=== PATIENT | female | born 1970 | race Caucasian/White ===

== ENCOUNTER → 2017-07-01 15:44 | Outpatient (CLI) | payer BC, SELFPAY ==
--- NOTE | 2017-07-01 15:52 | CT_ITS ---
CT abdomen pelvis wo con CLINICAL INDICATION: Left flank pain ITS.REASON: LEFT FLANK PAIN ORDERING PHYSICIAN: ALPESH Cash PATIENT AGE: 47 years COMPARISON: 08/05/2012 TECHNIQUE: Axial images obtained with sagittal and coronal reformats. PROCEDURE: Oral Contrast: None IV Contrast: None . FINDINGS: Lung base images show coronary artery calcific lesion. There is diffuse fatty liver infiltration with hepatomegaly. There has been a prior cholecystectomy. No obvious ductal dilatation. Spleen, adrenal glands, and pancreas are unremarkable. There is only minimal prominence of the proximal left ureter. No dilatation noted of the distal left ureter. There is however, a faint calcific density just at the left ureterovesical junction measuring 2 mm. While this may represent a phlebolith, a distal ureteral calculus is also a consideration. This was not present on an older exam of 08/05/2012. There are multiple phleboliths present in the pelvis. The right renal collecting system has an unremarkable appearance. Prior appendectomy according to history. No intestinal obstruction or free air is evident. There is mild thickening versus nondistention of the descending and proximal sigmoid colon. There is mild prominence of the left adnexa suggesting underlying ovarian cyst on the left. There are bilateral tubal ligation clips. The left-sided clip may be displaced not associated with the left ovary. Previously the left tubal ligation clip is in the posterior adnexa now within the anterior adnexa. There is minimal amount fluid in the pelvis. Postsurgical changes with prior fusion at L4 and L5 with minimal anterolisthesis of L4 by approximately 5 mm. IMPRESSION: 1. Possible 2 mm left ureterovesical junction stone with no significant dilatation of the left collecting system. 2. Anteverted uterus with prominent left ovary. Further evaluation performed with ultrasound if clinically warranted. 3. There are bilateral tubal ligation clips. The left clip is now anteriorly within the pelvis and does not appear to be associated with the ovary and may be displaced.
== END ==
PROVIDERS: PCP Family Medicine; Visit Provider Physician Assistant
DX: R10.9 Unspecified abdominal pain (principal)
CPT/HCPCS: 74176

== ENCOUNTER → 2017-07-05 13:42 | Outpatient (CLI) | payer BC, SELFPAY ==
--- NOTE | 2017-07-05 13:51 | US_ITS ---
US transvaginal HISTORY: ITS.REASON: LEFT OVARIAN ENLARGEMENT ORDERING PHYSICIAN: ALPSEH Cash PATIENT AGE: 47 years COMPARISON: CT scan of 07/01/2017 FINDINGS: The uterus is enlarged measuring 10 x 4.5 x 5.6 cm. Fluid is present within the endometrium measuring up to 9 mm in thickness. There are multiple nabothian cysts at the cervix. In the fundus of the uterus there is a 2.7 x 2.1 cm area of heterogeneous echogenicity consistent with a fibroid. The right ovary is 2.5 x 1.8 cm. There is a small cyst at 8 mm involving the right ovary. The left ovary is 4.4 x 3.5 x 4.3 cm containing multiple cysts the largest at 2.6 cm. No cul-de-sac fluid. IMPRESSION: 1. Enlarged uterus with 2.7 cm uterine fibroid and fluid within the endometrial cavity. 2. Multiple small left ovarian cysts, the largest measuring 2.6 cm accounting for the abnormality noted on the CT scan in the left adnexa
== END ==
PROVIDERS: Family Provider Family Medicine; PCP Family Medicine; Visit Provider Physician Assistant
DX: N83.8 Other noninflammatory disorders of ovary, fallopian tube and broad ligament (principal)
CPT/HCPCS: 76830

== ENCOUNTER → 2017-10-20 16:13 | Outpatient (CLI) | payer BC, SELFPAY ==
[2017-10-22 18:33] LABS: FSH 14.5 mIU/mL (.)
== END ==
PROVIDERS: Visit Provider Physician Assistant
DX: N93.9 Abnormal uterine and vaginal bleeding, unspecified (principal)
CPT/HCPCS: 36415; 83001

== ENCOUNTER → 2019-01-08 13:59 | Outpatient (CLI) | payer BC, SELFPAY ==
--- NOTE | 2019-01-08 14:05 | XR_ITS ---
PROCEDURE: XR CHEST 2V CLINICAL HISTORY: BRONCHITIS Cough and congestion COMPARISON: CXR CHEST(2 VIEWS-NOT PORTABLE) from 03/19/2014 FINDINGS: The cardiomediastinal silhouette and pulmonary vascularity are within normal limits.The lungs are clear without infiltrates, suspicious nodules, or pleural effusions. No acute bony abnormalities. IMPRESSION: No acute findings. Dictated by: Rolando Torres MD 01/08/2019 14:38 Signed by: <Electronically signed by Rolando Torres MD in [place]> 01/08/2019 14:38
--- NOTE | 2019-01-08 14:05 | XR_ITS ---
PROCEDURE: XR SINUS MIN 3V CLINICAL INDICATION: BRONCHITIS Congestion COMPARISON: No exams were available for comparison FINDINGS: There is to severe mucosal thickening of the left maxillary sinus and moderate mucosal thickening of the right maxillary sinus. No sinus air-fluid level apparent IMPRESSION: Bilateral maxillary sinus disease Dictated by: Rolando Torres MD 01/08/2019 14:39 Signed by: <Electronically signed by Rolando Torres MD in [facility]> 01/08/2019 14:40
== END ==
PROVIDERS: PCP Family Medicine; Visit Provider Family Medicine
DX: J40 Bronchitis, not specified as acute or chronic (principal)
CPT/HCPCS: 70220; 71046

== ENCOUNTER → 2020-03-07 09:59 | Outpatient (CLI) | payer BC, SELFPAY ==
--- NOTE | 2020-03-07 10:06 | US_ITS ---
PROCEDURE: US ABDOMEN LIMITED CLINICAL INDICATION: ABD PAIN COMPARISON: CT ABDPELWO CT abdomen pelvis wo con from 07/01/2017 FINDINGS: PANCREAS: Unremarkable. No obvious mass or abnormal fluid collection. No ductal dilatation LIVER: Diffuse increased echogenicity of the liver with poor through transmission of sound consistent with hepatic steatosis. No focal liver lesion demonstrated. There is appropriate direction of blood flow within non dilated portal vein. RIGHT KIDNEY: Unremarkable. Normal size and echogenicity. No hydronephrosis GALLBLADDER: Status post cholecystectomy. Common bile duct is normal at 4 mm. IMPRESSION: Fatty liver. Prior cholecystectomy. Otherwise negative Dictated by: Rolando Torres MD 03/07/2020 10:48 Rolando Torres MD in [facility] 03/07/2020 10:48
== END ==
LOC: RAD 10:00
PROVIDERS: PCP Family Medicine; Visit Provider Nurse Practitioner Family
DX: R10.11 Right upper quadrant pain (principal)
CPT/HCPCS: 76705

== ENCOUNTER → 2020-04-11 12:15 | Outpatient (CLI) | payer BC, SELFPAY ==
[2020-04-11 13:48] LABS: Basophils # 0.1 K/mm3 (0-0.2); Basophils % 0.4 % (0.1-2.0); Eosinophils # 0.2 K/mm3 (0.0-0.4); Eosinophils % 1.2 % (0.1-12.0); Hematocrit 45.7 % (37.0-47.0); Lymphocytes # 3.4 K/mm3 (0.7-4.5); Lymphocytes % 19.8 % (10-50); MANUAL DIFFERENTIAL MANUAL DIFFERENTIAL (MANUAL DIFF); Mean Corpuscular HGB Conc 41.1 g/dL (31.8-35.4); Mean Corpuscular Volume 94.8 fl (81-99); Mean Platelet Volume 8.6 fl (7.4-10.4); Monocytes # 0.6 K/mm3 (0.1-1.0); Monocytes % 3.5 % (1.7-9.3); Neutrophils # 12.9 K/mm3 (1.8-7.8); Neutrophils % 75.1 % (37.0-80.0); Platelet Count 331 K/mm3 (142-424); Red Blood Count 4.82 M/mm3 (4.20-5.40); Red Cell Distribution Width 14.2 % (11.5-17.5); White Blood Count 17.2 K/mm3 (4.8-10.8)
[2020-04-11 16:33] LABS: Eosinophils % 1 % (0-3); Lymphocytes % 27 % (10-50); Monocytes % 4 % (2-9); Neutrophils % 67 % (42-76); Platelet Estimate Normal; RBC Morphology Normal; Total Cells Counted 100
[2020-04-11 17:49] LABS: Hemoglobin 18.8 g/dL (12.2-16.2)
== END ==
PROVIDERS: PCP Family Medicine; Visit Provider Nurse Practitioner
DX: Z03.818 Encounter for observation for suspected exposure to other biological agents ruled out (principal)
CPT/HCPCS: 85007; 85025; 87275; 87276; U0003

== ENCOUNTER → 2020-08-29 08:23 | Outpatient (CLI) | payer BC, SELFPAY ==
[2020-08-29 09:00] LABS: Basophils # 0.1 K/mm3 (0-0.2); Basophils % 0.8 % (0.1-2.0); Eosinophils # 0.2 K/mm3 (0.0-0.4); Eosinophils % 2.5 % (0.1-12.0); Hematocrit 39.6 % (37.0-47.0); Hemoglobin 13.5 g/dL (12.2-16.2); Lymphocytes # 3.8 K/mm3 (0.7-4.5); Lymphocytes % 40.8 % (10-50); Mean Corpuscular HGB Conc 34.1 g/dL (31.8-35.4); Mean Corpuscular Hemoglobin 31.5 pg (27.0-31.2); Mean Corpuscular Volume 92.5 fl (81-99); Mean Platelet Volume 7.9 fl (7.4-10.4); Monocytes # 0.3 K/mm3 (0.1-1.0); Monocytes % 3.4 % (1.7-9.3); Neutrophils # 4.9 K/mm3 (1.8-7.8); Neutrophils % 52.4 % (37.0-80.0); Platelet Count 277 K/mm3 (142-424); Red Blood Count 4.28 M/mm3 (4.20-5.40); Red Cell Distribution Width 14.7 % (11.5-17.5); White Blood Count 9.3 K/mm3 (4.8-10.8)
--- NOTE | 2020-08-29 09:00 | XR_ITS ---
PROCEDURE: XR CHEST 2V CLINICAL HISTORY: HTN,CHEST PAIN,DMII COMPARISON: CR CXR CHEST(2 VIEWS-NOT PORTABLE) from 03/19/2014 CR XR CHEST 2V from 01/08/2019 FINDINGS: The cardiomediastinal silhouette and pulmonary vascularity are within normal limits. The lungs are clear without infiltrates, suspicious nodules, or pleural effusions. No acute bony abnormalities. IMPRESSION: No acute findings. Dictated by: Rolando Torres MD 08/29/2020 09:39 Rolando Torres MD in [facility] 08/29/2020 09:39
--- NOTE | 2020-08-29 09:00 | XR_ITS ---
PROCEDURE: XR THORACIC SPINE 3V CLINICAL INDICATION: HTN,CHEST PAIN,DMII COMPARISON: CR XR CHEST 2V from 08/29/2020 FINDINGS: No fracture or dislocation. No lytic or blastic change. There is normal mineralization. Minimal thoracic curvature convex left and mild lumbar curvature convex right. Small anterior osteophytes are present in the mid and lower thoracic spine. Other findings:None. IMPRESSION: Minimal degenerative change, no acute finding Dictated by: Rolando Torres MD 08/29/2020 09:41 Rolando Torres MD in [facility] 08/29/2020 09:41
[2020-08-29 09:18] LABS: Hemoglobin A1C 9.4 % (4.0-6.0)
[2020-08-29 10:34] LABS: Alanine Aminotransferase 22 U/L (12-78); Albumin Level 4.5 g/dl (3.5-5.0); Albumin/Globulin Ratio 1.7 (1.1-1.8); Alkaline Phosphatase 69 U/L (38-126); Anion Gap 16.4 mEq/L (5-15); Aspartate Amino Transferase 28 U/L (14-36); Bilirubin,Total 0.6 mg/dl (0.2-1.3); Blood Urea Nitrogen 12 mg/dl (7-17); Calcium 9.4 mg/dl (8.4-10.2); Carbon Dioxide 22 mmol/L (22.0-30.0); Chloride 104 mmol/L (98-107); Cholesterol 234 mg/dl (140-200); Estimated Glomerular Filt Rate 105 ml/min (>60); GFR (African American) 127 ML/MIN (>60); Globulin 2.6 g/dL (1.3-3.2); Glucose 130 mg/dl (74-100); HDL Cholesterol 26 mg/dl (40-60); Potassium 4.4 mmoL/L (3.5-5.1); Sodium 138 mmol/L (136-145); Total Protein,Serum 7.1 g/dl (6.3-8.2)
[2020-08-29 10:41] LABS: Triglycerides > 1575 mg/dl (30-150)
[2020-08-29 10:44] LABS: C-Reactive Protein 7.2 mg/L (0-4)
[2020-08-29 10:46] LABS: Direct LDL Cholesterol < 30.00 mg/dL (100-129)
[2020-08-29 11:04] LABS: Thyroid Stimulating Hormone 0.89 uIU/mL (0.465-4.68)
[2020-08-30 09:15] LABS: FSH 36.5 mIU/mL (.); LH 17.1 mIU/mL (.)
== END ==
PROVIDERS: PCP Family Medicine; Visit Provider Family Medicine
DX: R07.89 Other chest pain (principal); I10 Essential (primary) hypertension; E11.42 Type 2 diabetes mellitus with diabetic polyneuropathy; E78.2 Mixed hyperlipidemia; Z78.0 Asymptomatic menopausal state
CPT/HCPCS: 36415; 71046; 72072; 80053; 80061; 83001; 83002; 83036; 84443; 85025; 86140

== ENCOUNTER → 2022-01-27 15:33 | Outpatient (CLI) | payer BC, SELFPAY ==
--- NOTE | 2022-01-27 15:36 | MR_ITS ---
PROCEDURE INFORMATION: Exam: MR Lumbar Spine Without and With Contrast Exam date and time: 01/27/2022 3:37 PM Age: 51 years old Clinical indication: Low back pain; Prior surgery; Additional info: Lumbar radiculopathy TECHNIQUE: Imaging protocol: Magnetic resonance imaging of the lumbar spine without and with contrast. Contrast material: PROHANCE; Contrast volume: 17 ml; Contrast route: IV; COMPARISON: [facility] [place] [facility] 09/19/2015 1:28 PM FINDINGS: Bones/joints: No acute fracture or malalignment. Postsurgical changes of prior PLIF at L4-L5. Spinal cord: The conus terminates at L1. T12-L1: Broad-based disc bulge, facet hypertrophy and ligamentum flavum thickening contribute to mild spinal canal stenosis. No substantial bilateral foraminal stenosis. L1-L2: Mild broad-based disc bulge, facet hypertrophy and ligamentum flavum thickening without substantial canal or foraminal stenosis. L2-L3: Broad-based disc bulge, facet hypertrophy and ligamentum flavum thickening contribute to mild spinal canal stenosis with partial effacement of the right lateral recess. No substantial bilateral foraminal stenosis. L3-L4: Broad-based disc bulge, facet hypertrophy and ligamentum flavum thickening contribute to mild spinal canal stenosis. Moderate to severe bilateral foraminal stenosis. L4-L5: Changes of prior posterior fusion. No substantial spinal canal stenosis. Mild bilateral neural foraminal stenosis. L5-S1: Prominent epidural fat at this level. Mild broad-based disc bulge and facet hypertrophy. Moderate to severe left neural foraminal stenosis. Soft tissues: Unremarkable. IMPRESSION: Postsurgical changes with multilevel lumbar spondylosis contributing to mild spinal canal stenosis and moderate to severe bilateral neural foraminal stenosis at L3-L4. Additional level degenerative changes are described above.
[2022-01-27 15:50] LABS: Blood Urea Nitrogen 14 mg/dl (7-17); Estimated Glomerular Filt Rate 88 ml/min (>60); GFR (African American) 106 ML/MIN (>60)
== END ==
LOC: RAD 15:33
PROVIDERS: PCP Family Medicine; Visit Provider Family Medicine
DX: M54.16 Radiculopathy, lumbar region (principal)
CPT/HCPCS: 36415; 72158; 76376; 82565; 84520; A9576

== ENCOUNTER 2023-08-29 10:56 | Outpatient (CLI) | payer BC, SELFPAY ==
--- NOTE | 2023-08-29 11:18 | XR_ITS ---
FINAL REPORT CLINICAL HISTORY: bilateral hip pain FINDINGS: RIGHT HIP Two views of the right hip demonstrate no acute fracture or dislocation. There are mild degenerative changes. The visualized bony structures are well aligned. No soft tissue abnormality is seen. IMPRESSION: No acute bony abnormality. Reviewed, Interpreted and Dictated by Jerald Handy III, MD Transcribed by Sade Donahue Authenticated and [facility]
--- NOTE | 2023-08-29 11:18 | XR_ITS ---
FINAL REPORT CLINICAL HISTORY: lower back pain radiating to hip FINDINGS: 5 views of the lumbar spine were obtained. There has been fusion at L4-5. There is no evidence of fracture or dislocation. There is mild anterolisthesis of L4 on L5. There is multilevel degenerative change. Vascular calcifications are noted. No paraspinous soft tissue abnormalities identified. IMPRESSION: Postoperative and degenerative change with no acute bony abnormality. Reviewed, Interpreted and Dictated by Jerald Handy III, MD Transcribed by Sade Donahue Authenticated and [facility]
--- NOTE | 2023-08-29 11:18 | XR_ITS ---
FINAL REPORT CLINICAL HISTORY: bilateral hip pain FINDINGS: LEFT HIP: Two views of the left hip demonstrate no acute fracture or dislocation. There are mild degenerative changes.. The visualized bony structures are well aligned. No soft tissue abnormality is seen. IMPRESSION: Degenerative changes with no acute bony abnormality. Reviewed, Interpreted and Dictated by Jerald Handy III, MD Transcribed by Sade Donahue Authenticated and [facility]
== END 2023-08-29 23:59 | disposition home or self-care (01) ==
LOC: RAD 10:57
PROVIDERS: PCP Family Medicine; Visit Provider Nurse Practitioner Family
DX: M54.50 Low back pain, unspecified (principal); M25.552 Pain in left hip; M25.551 Pain in right hip
CPT/HCPCS: 72110; 73502

== ENCOUNTER 2023-09-08 15:33 | Outpatient (CLI) | payer BC, SELFPAY ==
[2023-09-08 16:34] LABS: Blood Urea Nitrogen 9 mg/dl (7-17); Estimated Glomerular Filt Rate 104 ml/min (>60); GFR (African American) 126 ML/MIN (>60)
== END 2023-09-08 23:59 ==
LOC: LAB 15:35
PROVIDERS: PCP Family Medicine; Visit Provider Family Medicine
DX: Z01.812 Encounter for preprocedural laboratory examination (principal)
CPT/HCPCS: 36415; 82565; 84520